=== PATIENT | female | born 1995 | race Caucasian/White ===

== ENCOUNTER 2020-06-14 11:03 | Emergency (ER) | payer BC, MEDICAID ==
[~2020-06-14] VITALS: Ht 167.6 cm; Wt 140.2 kg
[2020-06-14 11:23] VITALS: BP_SYST 123
--- NOTE | 2020-06-14 11:28 | NUR ---
Patient triaged and placed in waiting room. VSS and patient appears in no acute distress at this time. Awaiting available bed, and MD notified of need for MSE.
--- NOTE | 2020-06-14 11:38 | NUR ---
Patient to ER bed 2 to gown for evaluation. Side rails up. Report given to DEANNA Yang.
--- NOTE | 2020-06-14 11:40 | NUR ---
ER DR. LOZANO AT THE BEDSIDE EVALUATING PT
--- NOTE | 2020-06-14 11:41 | NUR ---
PT PRESENTS FROM HOME WITH C/O VAGINAL BLEEDING STARTING THIS AM. STATES SHE BELIEVES SHE IS 6 WEEKS , HOWEVER URINE HCG TEST NEGATIVE HERE. PT IS AAOX4, V/S STABLE
--- NOTE | 2020-06-14 11:45 | NUR ---
LAB AT THE BEDSIDE FOR BLOOD DRAW
[2020-06-14 11:59] LABS: BASOPHILS % (AUTO) 0.3 % (0.0-2.0); EOSINOPHILS # (AUTO) 0.3 K/uL (0.0-0.4); EOSINOPHILS % (AUTO) 4.3 % (0.0-4.0); HEMATOCRIT 34.3 % (36-48); HEMOGLOBIN 11.2 g/dL (12.0-16.0); LYMPHOCYTES # (AUTO) 2.2 K/uL (1.0-5.5); LYMPHOCYTES % (AUTO) 28.7 % (20.5-51.5); MEAN CORPUSCULAR HEMOGLOBIN 26 pg (27-31); MEAN CORPUSCULAR HGB CONC 33 % (32-36); MEAN CORPUSCULAR VOLUME 81 fL (79.0-98.0); MONOCYTES # (AUTO) 0.4 K/uL (0.0-1.0); MONOCYTES % (AUTO) 4.8 % (1.7-9.3); NEUTROPHILS # (AUTO) 4.6 K/uL (1.8-7.7); NEUTROPHILS % (AUTO) 61.9 % (40.0-70.0); PLATELET COUNT (AUTO) 231 K/uL (130-430); RED BLOOD CELL COUNT(AUTO) 4.25 MIL/uL (4.2-6.2); RED CELL DISTRIBUTION WIDTH 16.9 % (9.0-15.0); WHITE BLOOD COUNT (AUTO) 7.5 K/uL (4.8-10.8)
[2020-06-14 13:01] VITALS: BP_SYST 123
--- NOTE | 2020-06-14 13:02 | NUR ---
Patient given written and verbal discharge instructions and verbalizes understanding. ER MD discussed with patient the results and treatment provided. Patient in stable condition. ID arm band removed. Patient educated on pain management and to follow up with PMD. Pain Scale 0/10 Opportunity for questions provided and answered.
== END 2020-06-14 13:01 | disposition home or self-care (01) ==
LOC: SED 11:03
DX: O20.0 Threatened abortion (principal); Z3A.01 Less than 8 weeks gestation of pregnancy
CPT/HCPCS: 36415; 81002; 81025; 84702-TC; 85025; 99283